=== PATIENT | female | born 1960 | race Caucasian/White ===

== ENCOUNTER 2020-12-23 08:45 | Emergency (ER) | payer OTHER, SELFPAY ==
[2020-12-23] VITALS (46 sets, daily range): BP systolic 96–156; BP diastolic 55–85; PULSE 65–105; RESP 8–27; TEMP 36.6; O2SAT 2–100; BMI 33.0
--- NOTE | 2020-12-23 09:05 | DI.RAD.S_ITS ---
PROCEDURE: XR ANKLE LT 2V INDICATIONS: fall TECHNIQUE: Two views of the ankle were acquired. COMPARISON: None. FINDINGS: Bones: Posterior and laterally displaced tibiotalar fracture dislocation. Laterally displaced spiral fracture of the fibula at the level of the syndesmosis. Mildly displaced posterior malleolar fracture. The syndesmosis and ankle mortise are disrupted. Soft tissues: No foreign bodies. Achilles tendon appears normal. IMPRESSION: 1. Posterolaterally displaced trimalleolar fracture dislocation. Dictated by: Jennifer Penaloza M.D. on 12/23/2020 at 10:30 Approved by: Jennifer Penaloza M.D. on 12/23/2020 at 10:33
[2020-12-23] MEDS: HYDROMORPHONE 1 MG INJ IV ×3 (09:29→11:50)
[2020-12-23] MEDS: SODIUM CHLORIDE 0.9% 1,000 ML 250 ML IV (09:51)
[2020-12-23 09:53] LABS: COVID19 -Nasal RAPID Negative (Negative)
--- NOTE | 2020-12-23 10:06 | ED.LOWEXIN ---
HPI - Extremity Injury (Lower) General Chief Complaint: Extremity Injury, Lower Stated Complaint: Fall Time Seen by Provider: 12/23/20 09:24 Source: patient, family and EMS Mode of arrival: EMS Limitations: no limitations History of Present Illness HPI Narrative: Patient is a 60-year-old female presents with left ankle pain. She said that she was outside moving the sprinkler in her yd but it is on the slope when she tripped and fell. No other injury. She denies numbness or tingling. She is not on any antiplatelet or anticoagulation medication Related Data Previous Rx's Medication Instructions Recorded hydrocodone 5 mg-acetaminophen 325 1 tab PO Q6H PRN #10 tab 12/23/20 mg tablet hydrocodone 5 mg-acetaminophen 325 1 tab PO Q6H PRN #20 tab 12/23/20 mg tablet ondansetron 4 mg disintegrating 4 mg PO Q8H PRN #10 tab 12/23/20 tablet Allergies Allergy/AdvReac Type Severity Reaction Status Date / Time No Known Drug Allergies Allergy Verified 12/23/20 09:29 Review of Systems Review of Systems Narrative: GENERAL: Denies chills,fever HEENT: Denies throat pain RESPIRATORY: Denies dyspnea, cough, wheezing CARDIOVASCULAR: Denies chest pain, palpitations GASTROINTESTINAL: Denies nausea, vomiting MUSCULOSKELETAL: See HPI SKIN: No rash, no laceration, no pruritus NEUROLOGIC: Denies weakness, dizziness, headache, numbness 8 point review of systems is negative except for those stated above and HPI Patient History Social History Smoking Status: Never smoker Smoking Status: Never smoker alcohol intake frequency: 0-2 drinks per day Substance Use Type: does not use Exam Initial Vital Signs Initial Vital Signs: Vital Signs Pulse Rate 90 12/23/20 09:03 Pulse Oximetry 96 12/23/20 09:03 GENERAL: Well-appearing, well-nourished and in no acute distress. HEENT: Head atraumatic,EOMI, pupils reactive, face symmetric, moist mucous membranes CARDIOVASCULAR: Regular rate and rhythm without murmurs, rubs or gallops. RESPIRATORY: Breath sounds equal bilaterally, no wheezes rales or rhonchi. ABDOMEN: Soft, nontender. Normoactive bowel sounds all 4 quadrants. No guarding or rebound. EXTREMITIES: Normal range of motion, no clubbing or edema. Neurovascularly intact. Left lower extremity in splint distal pedal pulse intact able to move toes. No knee pain or abnormality no pelvis or hip pain. NEUROLOGICAL: Alert and oriented x4 SKIN: Warm, dry, no laceration, no petechiae, no rashes or lesions. Procedures Orthopedic Fracture Reduction Fracture #1: Side: left Fracture Reduction Location: tibia and fibula Analgesia: procedural sedation Technique: direct manipulation Post Reduction X-rays Demonstrate: other (Persistent dislocation) Post-reduction neuro exam: intact Post-reduction vascular exam: intact Splint Applied: Yes Orthopedic Splinting/Casting Injury #1: Side: left Lower Extremity Injury Location: ankle Lower Extremity Immobilizer: posterior splint and stirrup splint Other Orthopedic Equipment: crutches Post splinting neuro exam: intact Post splinting vascular exam: intact Placed by: Provider Procedural Sedation Consent signed: Yes Time out performed: Yes Indication: fracture/dislocation reduction ASA Class: I Mallampati Airway Classification: Class I Preparation: information technology program manager applied, pulse oximeter, capnometry used, supplemental O2 applied and suction/airway equipment at bedside IV Propofol dose (mg): 100 ED Sedation Level: Moderate (Concious) Complications: hypoxia Interventions: Airway repositioned and Assist by BVM Additional Comments: Procedure: Left ankle fracture reduction Indication(s): Ankle fracture reduction Allergies: NKDA ASA Classification: E E. Emergent conditions P1:Normal healthy patient P2: Mild systemic disease P3: Severe systemic disease P4: Severe systemic disease that is a constant threat to life P5: Moribund patient who is not expected to survive w/o operation Physical Exam: Airway: Clear intact Mallampati Classification: 1 1. Soft Palate, anterior/posterior tonsillar pillars and uvula visible 2. Tonsillar pillars and uvula hidden by base of tongue 3. Only soft palate visible 4. Soft palate not visible Respiratory: Clear bilaterally Cardiovascular: Regular Neurological: A&O x4 Preparation: Plan was explained to the patient, including risks and benefits. Patient is competent to make decisions regarding this elective procedure. Consent signed. kitchen steward/stewardess in place during procedure Oximetry in place during procedure. Capnometry in place during procedure. IV access present and patent. Suction available at bedside if needed. Sedation medication used: Propofol 100 mg Complications: Required BVM Reversal: None Discharge Criteria: Procedure completed. Patient tolerated the procedure well. Vital signs to baseline. LOC returned to baseline. Able to ambulated unassisted or with minimal assistance. Discharge Instructions: Instructions provided to responsible adult. Verbalized understanding. Patient to be escorted home by responsible adult. Course Orders Ordered: ED Orders 12/23/20 11:49 XR ankle LT 2V Stat 12/23/20 13:11 XR ankle LT 2V Stat Discontinued Medications Hydromorphone HCl (Hydromorphone 1 Mg Inj) 1 mg IV NOW ONE Stop: 12/23/20 09:25 Last Admin: 12/23/20 09:29 Dose: 1 mg Documented by: SHERRILL Hydromorphone HCl (Hydromorphone 1 Mg Inj) 1 mg IV NOW ONE Stop: 12/23/20 09:49 Last Admin: 12/23/20 09:51 Dose: 1 mg Documented by: HUI Hydromorphone HCl (Hydromorphone 1 Mg Inj) 1 mg IV NOW ONE Stop: 12/23/20 11:50 Last Admin: 12/23/20 11:50 Dose: 1 mg Documented by: ALEXSANDRA Sodium Chloride (Normal Saline 0.9%) 1,000 mls @ 250 mls/hr IV BOLUS ONE Stop: 12/23/20 13:47 Last Admin: 12/23/20 09:51 Dose: 250 mls/hr Documented by: HUI Lorazepam (Lorazepam 2 Mg/Ml Inj) 0.5 mg IV NOW ONE Stop: 12/23/20 12:28 Last Admin: 12/23/20 12:45 Dose: 0.5 mg Documented by: ALEXSANDRA Ondansetron HCl (Ondansetron 4 Mg/2 Ml Inj) 4 mg IV NOW ONE Stop: 12/23/20 10:34 Last Admin: 12/23/20 10:36 Dose: 4 mg Documented by: HUI Ondansetron HCl (Ondansetron 4 Mg Odt) 4 mg SL NOW ONE Stop: 12/23/20 14:18 Last Admin: 12/23/20 14:20 Dose: 4 mg Documented by: ALEXSANDRA Propofol (Propofol 200 Mg/20 Ml Vial) 100 mg IV NOW ONE Stop: 12/23/20 11:09 Last Admin: 12/23/20 11:41 Dose: 100 mg Documented by: ALEXSANDRA Propofol (Propofol 200 Mg/20 Ml Vial) 100 mg IV NOW ONE Stop: 12/23/20 12:28 Last Admin: 12/23/20 12:56 Dose: 100 mg Documented by: ALEXSANDRA Vital Signs Vital signs: Vital Signs - 8 hr 12/23/20 11:10 12/23/20 11:15 12/23/20 11:20 Pulse Rate 80 96 H 78 Respiratory Rate Blood Pressure Pulse Oximetry 96 97 92 12/23/20 11:25 12/23/20 11:30 12/23/20 11:33 Pulse Rate 77 93 H Respiratory Rate Blood Pressure 124/74 119/72 Pulse Oximetry 97 97 12/23/20 11:35 12/23/20 11:40 12/23/20 11:45 Pulse Rate 105 H 91 H 82 Respiratory Rate 21 8 L Blood Pressure 115/66 116/69 96/55 L Pulse Oximetry 97 96 99 12/23/20 11:50 12/23/20 11:55 12/23/20 12:00 Pulse Rate 86 84 75 Respiratory Rate 16 13 9 L Blood Pressure 109/63 112/72 126/62 Pulse Oximetry 91 96 94 12/23/20 12:05 12/23/20 12:10 12/23/20 12:15 Pulse Rate 82 84 89 Respiratory Rate 13 17 19 Blood Pressure 117/74 123/71 Pulse Oximetry 97 96 97 12/23/20 12:20 12/23/20 12:25 12/23/20 12:30 Pulse Rate 76 87 79 Respiratory Rate 16 14 14 Blood Pressure 130/77 Pulse Oximetry 97 99 98 12/23/20 12:35 12/23/20 12:40 12/23/20 12:45 Pulse Rate 72 80 77 Respiratory Rate 12 17 14 Blood Pressure 129/71 123/81 Pulse Oximetry 96 99 99 12/23/20 12:50 12/23/20 12:55 12/23/20 13:00 Pulse Rate 65 81 75 Respiratory Rate 14 17 22 Blood Pressure 118/71 124/68 99/59 L Pulse Oximetry 100 100 100 12/23/20 13:05 12/23/20 13:10 12/23/20 13:15 Pulse Rate 81 88 89 Respiratory Rate 23 15 15 Blood Pressure 111/69 107/68 117/82 Pulse Oximetry 100 98 98 12/23/20 13:19 12/23/20 13:20 12/23/20 13:25 Pulse Rate 81 70 79 Respiratory Rate 15 10 L 17 Blood Pressure 127/70 125/80 Pulse Oximetry 98 99 12/23/20 13:30 12/23/20 13:31 12/23/20 13:35 Pulse Rate 89 70 77 Respiratory Rate 19 10 L 10 L Blood Pressure 141/60 H Pulse Oximetry 96 98 92 12/23/20 13:40 12/23/20 13:45 12/23/20 13:50 Pulse Rate 84 74 81 Respiratory Rate 20 14 27 H Blood Pressure Pulse Oximetry 97 99 99 12/23/20 13:55 12/23/20 14:00 Pulse Rate 85 83 Respiratory Rate 17 25 H Blood Pressure 133/81 Pulse Oximetry 100 99 MDM - Extremity Injury (Lower) Lab Data Labs: Lab Results 12/23/20 Range/Units 09:37 SARS-CoV-2 (PCR) Negative (Negative) Point of Care Testing Test Results Not applicable Imaging Data Extremity x-ray #1: Radiologist's Impression: PROCEDURE: XR ANKLE LT 2V INDICATIONS: fall TECHNIQUE: Two views of the ankle were acquired. COMPARISON: None. FINDINGS: Bones: Posterior and laterally displaced tibiotalar fracture dislocation. Laterally displaced spiral fracture of the fibula at the level of the syndesmosis. Mildly displaced posterior malleolar fracture. The syndesmosis and ankle mortise are disrupted. Soft tissues: No foreign bodies. Achilles tendon appears normal. IMPRESSION: 1. Posterolaterally displaced trimalleolar fracture dislocation. Dictated by: Jennifer Penaloza M.D. on 12/23/2020 at 10:30 Extremity x-ray #2: Radiologist's Impression: PROCEDURE: XR ANKLE LT 2V INDICATIONS: reduction TECHNIQUE: 2 views of the ankle were acquired. COMPARISON: [facility], XR ANKLE LT 2V, 12/23/2020, 9:42. FINDINGS: Bones: No new fractures or dislocations. Ankle mortise is normally aligned. No suspicious bony lesions. Soft tissues: No tibiotalar joint effusion. Achilles tendon appears normal. IMPRESSION: Reduction of fracture dislocations, gross anatomic alignment established, in splint. Orthopedic surgical intervention is anticipated. Dictated by: David Munoz M.D. on 12/23/2020 at 12:20 Extremity x-ray #3: Radiologist's Impression: PROCEDURE: XR ANKLE LT 2V INDICATIONS: reduction TECHNIQUE: Three views of the ankle were acquired. COMPARISON: [facility], CR, XR ANKLE LT 2V, 12/23/2020, 11:51. FINDINGS: Bones: Bahai of near anatomic alignment following a trimalleolar ankle fracture dislocation. Fractures seen are now minimally displaced. Soft tissues: Medial soft tissue swelling. IMPRESSION: Improved alignment post reduction with now minimally displaced trimalleolar fracture. Dictated by: Jennifer Penaloza M.D. on 12/23/2020 at 13:54 Approved by: Jennifer Penaloza M.D. on 12/23/2020 at 13: MDM Narrative Medical decision making narrative: Initial reduction was unsuccessful. 1230- Dr. Carvajal orthopedic updated on patient's symptoms test results, will be in to emergency department for reduction He performed a 2nd reduction although I was there to assist. 2nd reduction was successful. Plaster splint was placed by Dr. Carvajal. Patient was feeling nauseated likely from pain and medication. Zofran did help. Discharge Plan Departure Patient Disposition: Home Clinical Impression: Fracture of left ankle Qualifiers: Encounter type: initial encounter Fracture type: closed Qualified Code(s): S82.892A - Other fracture of left lower leg, initial encounter for closed fracture Closed dislocation of left ankle Qualifiers: Encounter type: initial encounter Qualified Code(s): S93.05XA - Dislocation of left ankle joint, initial encounter Instructions: DI for Ankle Fracture Activity Restrictions/Additional Instructions: *You have been diagnosed with left ankle fracture dislocation *What to do: At this time keep foot in cast. You will follow-up with orthopedics next week. Use crutches. No weight-bearing. Elevate, ice *Continue to take medications as directed [place] 1-2 tablets every 6 hours if needed for severe pain *Follow up with your primary care provider in 2-3 days Follow-up with Dr. Carvajal *Return to ER if you should have increasing pain numbness tingling or any new, worsening or concerning symptoms Prescriptions: New hydrocodone-acetaminophen 5-325 mg tablet 1 tab PO Q6H PRN (Reason: pain) Qty: 10 RF: 0 hydrocodone-acetaminophen 5-325 mg tablet 1 tab PO Q6H PRN (Reason: pain) Qty: 20 RF: 0 ondansetron 4 mg tablet,disintegrating 4 mg PO Q8H PRN (Reason: nausea and vomiting) Qty: 10 RF: 0 Referrals: Elpidio Carvajal MD [Physician] - Franca Russ MD [Primary Care Provider] -
[2020-12-23] MEDS: ONDANSETRON 4 MG/2 ML INJ IV (10:36)
[2020-12-23] MEDS: ONDANSETRON 4 MG/2 ML INJ (11:35)
[2020-12-23] MEDS: propofoL 200 MG/20 ML VIAL 100 MG IV ×2 (11:41→12:56)
--- NOTE | 2020-12-23 11:49 | DI.RAD.S_ITS ---
PROCEDURE: XR ANKLE LT 2V INDICATIONS: reduction TECHNIQUE: 2 views of the ankle were acquired. COMPARISON: [facility], CR, XR ANKLE LT 2V, 12/23/2020, 9:42. FINDINGS: Bones: No new fractures or dislocations. Ankle mortise is normally aligned. No suspicious bony lesions. Soft tissues: No tibiotalar joint effusion. Achilles tendon appears normal. IMPRESSION: Reduction of fracture dislocations, gross anatomic alignment established, in splint. Orthopedic surgical intervention is anticipated. Dictated by: David Munoz M.D. on 12/23/2020 at 12:20 Approved by: David Munoz M.D. on 12/23/2020 at 12:20
[2020-12-23] MEDS: LORazepam 2 MG/ML INJ 0.5 MG IV (12:45)
--- NOTE | 2020-12-23 13:11 | DI.RAD.S_ITS ---
PROCEDURE: XR ANKLE LT 2V INDICATIONS: reduction TECHNIQUE: Three views of the ankle were acquired. COMPARISON: [facility], , XR ANKLE LT 2V, 12/23/2020, 11:51. FINDINGS: Bones: Moravian of near anatomic alignment following a trimalleolar ankle fracture dislocation. Fractures seen are now minimally displaced. Soft tissues: Medial soft tissue swelling. IMPRESSION: Improved alignment post reduction with now minimally displaced trimalleolar fracture. Dictated by: Jennifer Penaloza M.D. on 12/23/2020 at 13:54 Approved by: Jennifer Penaloza M.D. on 12/23/2020 at 13:58
--- NOTE | 2020-12-23 13:14 | PM.CN ---
History of Present Illness Consult details Date Patient Seen: 12/23/20 Time Patient Seen: 13:14 Chief complaint: Fall Requesting provider: Arabella Jacome Narrative: Patient is a 60-year-old female presents with left ankle pain. She said that she was outside moving the sprinkler in her yd but it is on the slope when she tripped and fell. No other injury. She denies numbness or tingling. She is not on any antiplatelet or anticoagulation medication Meds Home Medications and Allergies Allergies Allergy/AdvReac Type Severity Reaction Status Date / Time No Known Drug Allergies Allergy Verified 12/23/20 09:29 Review of Systems Review of Systems ROS: Yes All systems reviewed with the patient and are negative except as otherwise documented Exam Vital Signs (past 8 hours): - 12/23/20 09:03 12/23/20 09:04 12/23/20 09:15 Temperature 97.8 F Pulse Rate 90 90 89 Respiratory Rate 20 Blood Pressure 126/85 126/85 Pulse Oximetry 96 98 99 12/23/20 09:30 12/23/20 10:00 12/23/20 10:30 Temperature Pulse Rate 69 95 H 103 H Respiratory Rate 16 16 Blood Pressure 156/78 H 129/70 114/62 Pulse Oximetry 100 97 96 12/23/20 11:00 12/23/20 11:05 12/23/20 11:10 Temperature Pulse Rate 78 81 80 Respiratory Rate Blood Pressure 122/62 Pulse Oximetry 93 97 96 12/23/20 11:15 12/23/20 11:20 12/23/20 11:25 Temperature Pulse Rate 96 H 78 77 Respiratory Rate Blood Pressure Pulse Oximetry 97 92 97 12/23/20 11:30 12/23/20 11:33 12/23/20 11:35 Temperature Pulse Rate 93 H 105 H Respiratory Rate Blood Pressure 124/74 119/72 115/66 Pulse Oximetry 97 97 12/23/20 11:40 12/23/20 11:45 12/23/20 11:50 Temperature Pulse Rate 91 H 82 86 Respiratory Rate 21 8 L 16 Blood Pressure 116/69 96/55 L 109/63 Pulse Oximetry 96 99 91 12/23/20 11:55 12/23/20 12:00 12/23/20 12:05 Temperature Pulse Rate 84 75 82 Respiratory Rate 13 9 L 13 Blood Pressure 112/72 126/62 117/74 Pulse Oximetry 96 94 97 12/23/20 12:10 12/23/20 12:15 12/23/20 12:20 Temperature Pulse Rate 84 89 76 Respiratory Rate 17 19 16 Blood Pressure 123/71 Pulse Oximetry 96 97 97 12/23/20 12:25 12/23/20 12:30 12/23/20 12:35 Temperature Pulse Rate 87 79 72 Respiratory Rate 14 14 12 Blood Pressure 130/77 129/71 Pulse Oximetry 99 98 96 12/23/20 12:40 12/23/20 12:45 12/23/20 12:55 Temperature Pulse Rate 80 77 Respiratory Rate 17 14 Blood Pressure 123/81 Pulse Oximetry 99 99 2 L Oxygen Delivery Method Nasal Cannula Oxygen Flow Rate 2 Narrative Exam Narrative: NV intact in the LLE, eccyhmosis about the ankle. No skin tenting or skin breaks. Objective Imaging ankle x-ray: My impression: Trimalleolar ankle fracture s/p closed reduction with some impriovement of alignment. The Talus remains dislocated out the back. Moderate posterior mal fragment. ankle x-ray s/p reduction: My impression: Improved alignment of ankle fracture. The talus is well centered under the tibial plafond. Labs Labs: Laboratory Results - last 24 hr 12/23/20 09:37 SARS-CoV-2 (PCR) Negative Assessment & Plan Assessment & Plan narrative: Patient is a 60 yo F with a trimalleolar ankle fracture dislocation after a GLF today. The ER attempted a closed reduction with some imrpovement of alignment, however the ankle remained dislocated. Patient underwent subbsequent closed reduction by Dr. Carvajal with improvement of alignment and reduction of the dislocation. She was placed into a short leg splint. Instructed to elevate and ICE frequently over the weekend. Call clinic on saturday to set follow up appointment. - NWB LLE - elevate and ICE - Keep splint c/d/i - call clinic Saturday for appointment Time Spent With Patient Time with patient: Greater than 35 minutes
--- NOTE | 2020-12-23 13:20 | RT ---
Called to bedside repeat sedation, bag mask unit with suction on and functional 100% fio2. Etco2 on at 35. MD at bedside after sedation pt became apnic and bagged approx 5 min with Jaw thrust. Pt arousable and on 2lpm nc with good sao2 at 96%. Pt turned down to room air with sao2 @96%, Released by Rn and no distress noted. Pt awake and alert, all rales up.
[2020-12-23] MEDS: ONDANSETRON 4 MG ODT SL (14:20)
== END 2020-12-23 14:32 | disposition home or self-care (01) ==
PROVIDERS: Emergency Provider Emergency Medicine; PCP Internal Medicine
DX: S82.892A Other fracture of left lower leg, initial encounter for closed fracture (principal); S93.05XA Dislocation of left ankle joint, initial encounter; W01.0XXA Fall on same level from slipping, tripping and stumbling without subsequent striking against object, initial encounter; Z20.822 Contact with and (suspected) exposure to COVID-19
CPT/HCPCS: 27752; 73600; 87635; 96374; 96375; 96376; 99152; 99285; C9803; J1170; J2060; J2405; J2704

== ENCOUNTER → 2020-12-27 15:21 | Outpatient (CLI) | payer OTHER, SELFPAY ==
--- NOTE | 2020-12-27 15:24 | DI.CT.S_ITS ---
PROCEDURE: CT LE LT W CON INDICATIONS: Displaced trimalleolar fracture of left lower leg TECHNIQUE: Noncontrast 1-1.5 mm axial sections acquired from above the tibiotalar joint to the bottom of the calcaneus, with coronal and sagittal reformats. COMPARISON: [facility], CR, XR ANKLE LT 2V, 12/23/2020, 13:12. FINDINGS: Image quality: Diagnostic. Bones: There is a comminuted fracture of the distal tibia involving the medial and posterior malleoli with extension to the tibiotalar joint. A comminuted fracture of the distal fibular shaft is also demonstrated extending to the tibial fibular syndesmosis. There is associated syndesmotic widening. There is also widening of the ankle mortise medially and laterally. Remaining visualized osseous structures appear intact. Soft tissues: There is extensive periarticular soft tissue swelling and subcutaneous edema around the ankle. The visualized flexor, extensor, peroneal, and Achilles tendons appear intact. IMPRESSION: 1. Comminuted fractures of the distal tibia and fibula as described with associated disruption of the ankle mortise and widening of the distal syndesmosis. Dictated by: Angus Naidu M.D. on 12/27/2020 at 17:40 Approved by: Angus Naidu M.D. on 12/27/2020 at 17:43
== END ==
PROVIDERS: PCP Internal Medicine; Referring Provider Orthopaedic Surgery Foot and Ankle Surgery; Visit Provider Orthopaedic Surgery Foot and Ankle Surgery
DX: S82.852A Displaced trimalleolar fracture of left lower leg, initial encounter for closed fracture (principal); S82.832A Other fracture of upper and lower end of left fibula, initial encounter for closed fracture; Z20.822 Contact with and (suspected) exposure to COVID-19; X58.XXXA Exposure to other specified factors, initial encounter
CPT/HCPCS: 73700; 87635

== ENCOUNTER → 2020-12-27 16:25 | Outpatient (CLI) | payer OTHER, SELFPAY ==
[2020-12-27 16:51] LABS: COVID19 -Nasal RAPID Negative (Negative)
== END ==
PROVIDERS: PCP Internal Medicine; Visit Provider Physician Assistant
DX: Z20.822 Contact with and (suspected) exposure to COVID-19 (principal)
CPT/HCPCS: 87635

== ENCOUNTER 2020-12-30 08:22 | Day surgery (SDC) | payer OTHER, SELFPAY ==
[2020-12-30] VITALS (8 sets, daily range): BP systolic 125–138; BP diastolic 63–75; PULSE 87–112; RESP 10–16; TEMP 36.1–37.6; O2SAT 92–99; BMI 35.7
--- NOTE | 2020-12-30 | DI.RAD.S_ITS ---
PROCEDURE: XR ANKLE LT MIN 3V INDICATIONS: ORIF LEFT ANKLE TECHNIQUE: 9 operative views of the ankle were acquired. COMPARISON: [facility], CR, XR ANKLE LT 2V, 12/23/2020, 13:12. FINDINGS: 9 intraoperative C-arm images utilized during performance of trimalleolar ORIF. IMPRESSION: Intraoperative imaging utilized during performance of trimalleolar ORIF with no radiographic evidence of complications. Dictated by: Joe Avila M.D. on 12/30/2020 at 16:08 Approved by: Joe Avila M.D. on 12/30/2020 at 16:15
[2020-12-30] MEDS: LACTATED RINGERS 1,000 ML 42 ML IV ×2 (09:37→13:12)
[2020-12-30] MEDS: GABAPENTIN 300 MG CAPSULE PO (10:41)
[2020-12-30] MEDS: ACETAMINOPHEN 325 MG TABLET 975 MG PO (10:41)
[2020-12-30] MEDS: CELECOXIB 200 MG CAPSULE 400 MG PO (10:41)
--- NOTE | 2020-12-30 11:45 | PM.PREOP ---
Pre-operative Note COVID-19 COVID-19 status: Negative Interval Note History & Physical reviewed/Exam performed by Physician: Yes Changes to H&P: No
--- NOTE | 2020-12-30 11:49 | SUR.PREOP ---
Block start time [1142] . Monitoring initiated and maintained throughout procedure. Medications given by Dr. Mclaughlin. Patient remained stable throughout procedure, no adverse reactions noted. Block end time [1147]. Time out completed before procedure, pt take to OR by SRIKANTH Hanley
[2020-12-30] MEDS: CEFAZOLIN 1 GM VIAL 2 GM IV (12:05)
--- NOTE | 2020-12-30 12:08 | PM.PROC.1 ---
Procedures Date/Time Date of procedure: 12/30/20 Time of procedure: 11:44 Nerve Block Time out performed: Yes Local anesthetic used: bupivacaine 0.5% Amount of anesthesia used (mL): 15 Nerve blocks: peroneal (popliteal) Procedure successful: Yes Patient tolerated procedure: well and no complications Complications: none Additional comments: Popliteal nerve block performed for post-op pain control at surgeon request. Patient was positioned with IV, O2, monitors and rescue meds available. Prepped and timeout performed. Target identified with continuous ultrasound guidance. 15mL of bupivicaine 0.5% was injected perineurally with intermittent aspiration and injection. No blood, no paresthesias, no acute complications.
--- NOTE | 2020-12-30 12:10 | PM.PROC.1 ---
Procedures Date/Time Date of procedure: 12/30/20 Time of procedure: 11:47 Nerve Block Time out performed: Yes Local anesthetic used: bupivacaine 0.5% Amount of anesthesia used (mL): 15 Nerve blocks: femoral (adductor canal) Procedure successful: Yes Patient tolerated procedure: well and no complications Complications: none Additional comments: Adductor canal nerve block performed for post-op pain control at surgeon request. Patient was positioned with IV, O2, monitors and rescue meds available. Prepped and timeout performed. Target identified with continuous ultrasound guidance. 15 mL of bupivicaine 0.5% was injected perineurally with intermittent aspiration and injection. No blood, no paresthesias, no acute complications.
[2020-12-30] MEDS: BUPIVACAINE 0.25% W/ EPI 30 ML VIAL INJ (13:13)
--- NOTE | 2020-12-30 15:13 | P.OP_ITS ---
Operative Date/Time/Diagnoses Date of procedure: 12/30/20 Time of procedure: 12:15 Pre-op diagnosis: Left trimalleolar ankle fracture dislocation S82.852A Post-op diagnosis: same Procedure & Clinicians Procedure: 1. Open reduction and internal fixation trimalleolar ankle fracture including fixation of posterior malleolus cpt [id number] Same procedure as scheduled: Yes Indications: Patient is a 60-year-old female that sustained a displaced trimalleolar ankle fracture dislocation when she slipped in her yd moving a sprinkler. She was seen in the [facility] Emergency Room reduction was performed. She had unstable fracture pattern indicated for surgery. Risks and benefits were discussed with the patient. The risks and benefits of the pr ocedure have been discussed with the patient even opportunity to ask questions. The risks of surgery include but are not limited to infection, malunion, nonunion, persistence of pain, damage to nerves and blood vessels, posttraumatic arthritis, DVT, PE, cardiopulmonary complications and . The patient expressed a thorough understanding of the risks and benefits of surgery and has elected to proceed. Consent was signed in the office. Surgeon: Carol Pedraza Click Yes if Unassisted: Yes Anesthesia Type: General, Peripheral nerve block and Local (0.25% Marcaine with epinephrine 20 cc) Operative Notes Findings: Posterior malleolus fracture with interposed articular fragment this was removed in the posterior malleolus was reduced and fixed with a screw and washer. Lateral malleolus was extremely comminuted fibular shaft fracture multiple fragments. This was fixed with a 12 hole 1/3 tubular bridge plate to avoid stripping the comminuted fragments additional 0 Vicryl suture cerclage was performed. Medial malleolus was fixed with 2 x 44 mm 4.0 cannulated screws The syndesmosis was stressed under fluoroscopic guidance with external rotation and separately with the hook test and was stable. Closure Type: primary Specimen(s): none sent Prosthetic devices, grafts, tissues, transplants, or devices: Lateral malleolus: Arthrex 12 hole 1/3 tubular plate. Locking 3.5 screws distally. Cortical 3.5 screws proximally Medial malleolus: Arthrex 2x 4.0 44mm cannulated screws Posterior malleolus: Arthrex 4.0mm cannulated screw and washer Estimated Blood Loss (mL): 20 Blood products transfused: none Tourniquet time (min): 119 Procedure in detail: Procedure in detail: In the preoperative holding area, the appropriate limb and sites were marked, consent was again reviewed with the patient and all questions answered. The patient was brought to the operating room, placed on the operating table and given anesthetic. Following successful levels of anesthesia, the patient was appropriately padded, position secured to the table. A lateral position on a beanbag was used for this case. An SCD was placed on the contralateral leg. All bony prominences were well padded. A well-padded thigh tourniquet was placed. The surgical leg was then prepped and draped in the usual sterile fashion. A formal time-out procedure was completed confirming the patient, site and side of surgery and administration of appropriate preoperative antibiotics. All were in agreement. An Esmarch bandage was utilized to exsanguinate the limb and the tourniquet was raised on the thigh to 250 mmHg. Posterior lateral incision was made midway between the Achilles and the fibula. Dissection was carried through the skin and subcutaneous tissue and fascia. The fascia was opened the sural nerve was visualized and protected throughout this case.. The peroneal is a were exposed and retracted laterally. The FHL then retracted medially across the a tibia to expose the posterior malleolus. Posterior malleolus fracture was then exposed. The fracture was exposed and cleaned of debris. There is a sizable articular fragment blocking reduction of the posterior malleolus. This was removed with pituitary. Fracture was reduced, restoring length rotation and anatomic alignment. This was stabilized with 4.0 cannulated screw and washer to act as a 1 hole plate. Next attention was turned to the posterior fibula. The peroneal tendons were retracted medially exposing the posterior fibula and a highly comminuted fibular shaft fracture. Due to the comminuted nature of the fracture a bridge plate was selected. The clamps were used to pull little extra length on the fracture and then a 12 hole 1/3 tubular locking plate was placed and secured in standard fashion. Cortical screws were placed proximally and locking screws distally to reduce prominence and to obtain fixation in distal cancellous bone. Lobster claw clamps were used around the comminuted fracture sections to reduce the fragments and then a 0 Vicryl cerclage suture was used followed by final screw placement. Appropriate implant positioning was confirmed on intraoperative fluoro. Leg was then externally rotated and attention was turned to the medial malleolu s. Medial malleolus fixation: Attention was then turned to the medial side of the joint. A standard medial approach to the medial malleolus as it. The periosteum was reflected at the fracture site and this was cleaned and reduced with a pointed reduction clamp. The medial aspect of the joint was visualized through the fracture site and was noted intact. Two parallel K-wires were then placed and alignment checked on x-ray to confirm adequate position. The wires were then sequentially overdrilled and (2) 4.0mm cannulated screws were placed. The reduction was stable. Ankle was stressed under fluoroscopic imaging an external rotation and fibular manipulation using the bone clamp/hook. The syndesmosis was felt to be stable no widening was noted. Stability was confirmed under fluoro. The wounds were irrigated. We were quite satisfied with result clinically and radiographically. The tourniquet was released, and hemostasis achieved. The deep tissue was closed with 2 O Vicryl. Subcutaneous tissue was closed with 4 0 Monocryl in the skin with 3 O nylon. A sterile bulky dressing and knee splint were applied. All counts were correct. The patient was then awoken and transported to recovery room in good condition. There no known immediate complications from this procedure. Complications: none Post-operative Condition: stable Disposition: PACU Plan for aftercare: Nonweightbearing left lower extremity. Elevate above the heart much as possible next 2 weeks. Take pain medication as prescribed. Start aspirin 325 mg daily on postop day 1 for DVT prophylaxis. Follow-up in 2 weeks. Will remain nonweightbearing for 6 weeks and start progressive weight-bearing. If incisions are well healed 2 weeks will have sutures removed start range of motion in a walking boot
--- NOTE | 2020-12-30 15:40 | SUR.PHASEI ---
Dr Mclaughlin notified of heart rate at 110 upon discharge. States okay to go ahead with discharge.
== END 2020-12-30 16:00 | disposition home or self-care (01) ==
PROVIDERS: PCP Internal Medicine; Referring Provider Orthopaedic Surgery Foot and Ankle Surgery; Visit Provider Orthopaedic Surgery Foot and Ankle Surgery
PROC: (CPT 27823; principal; 2020-12-30 10:15)
DX: S82.852A Displaced trimalleolar fracture of left lower leg, initial encounter for closed fracture (principal); W01.0XXA Fall on same level from slipping, tripping and stumbling without subsequent striking against object, initial encounter; Y93.H2 Activity, gardening and landscaping; Y92.007 Garden or yard of unspecified non-institutional (private) residence as the place of occurrence of the external cause
CPT/HCPCS: 27823; 64450; 73610; 76000; J0690; J1100; J2250; J2405; J2704; J3010

== ENCOUNTER → 2021-03-20 17:18 | Outpatient (CLI) | payer OTHER, SELFPAY ==
--- NOTE | 2021-03-20 | DI.MG.S_ITS ---
BILATERAL DIGITAL SCREENING MAMMOGRAM 3D/2D WITH CAD: 03/20/2021 CLINICAL: Routine screening. Comparison is made to exams dated: 08/12/2017 mammogram - outside, 08/01/2015 mammogram, and 04/07/2013 mammogram. There are scattered fibroglandular elements in both breasts. Current study was also evaluated with a Computer Aided Detection (CAD) system. No significant masses, calcifications, or other findings are seen in either breast. There has been no significant interval change. IMPRESSION: NEGATIVE There is no mammographic evidence of malignancy. A 1 year screening mammogram is recommended. This exam was interpreted at Station ID: [id number]. NOTE: For mammograms, a report in lay terms will be sent to the patient. Approximately 15% of breast malignancies will not be visualized mammographically. In the management of a palpable breast mass, a negative mammogram must not discourage biopsy of a clinically suspicious lesion. Electronically Signed By: Dion Sandoval M.D. at/anderson:03/21/2021 09:07:53 letter sent: Normal Exam ACR BI-RADS Category 1: Negative [id number]
== END ==
PROVIDERS: PCP Internal Medicine; Referring Provider Internal Medicine; Visit Provider Internal Medicine
DX: Z12.31 Encounter for screening mammogram for malignant neoplasm of breast (principal)
CPT/HCPCS: 77063; 77067

== ENCOUNTER 2021-03-31 13:23 | Day surgery (SDC) | payer OTHER, SELFPAY ==
[2021-03-30 12:12] VITALS: BMI 35.2
[2021-03-31] VITALS (10 sets, daily range): BP systolic 87–154; BP diastolic 35–78; PULSE 83–98; RESP 12–25; TEMP 36.6–37.1; O2SAT 93–100; BMI 35.2
[2021-03-31 14:07] LABS: COVID19 -Nasal RAPID Negative (Negative)
--- NOTE | 2021-03-31 14:34 | PM.PREOP ---
Pre-operative Note COVID-19 COVID-19 status: Negative Interval Note History & Physical reviewed/Exam performed by Physician: Yes Changes to H&P: No
--- NOTE | 2021-03-31 15:15 | SUR.OPER ---
Lateral on a padilla bag, head on pillow, gel axillary roll in place, bottom leg bent with gel pad under knee to foot, upper leg straight and supported with pillows. Upper arm supported by pillows and secured over bottom arm to padded arm board. Safety belt at hip, tape over blanket lower legs.
[2021-03-31] MEDS: CEFAZOLIN 1 GM VIAL 2 GM IV (15:21)
[2021-03-31] MEDS: EPINEPHrine 1 MG/ML 0.15 MG INJ (15:29)
[2021-03-31] MEDS: BUPIVACAINE 0.25% (PF) VIAL 30 ML INJ (15:29)
--- NOTE | 2021-03-31 16:08 | P.OP_ITS ---
Operative Date/Time/Diagnoses Date of procedure: 03/31/21 Time of procedure: 16:09 Pre-op diagnosis: Wound infection T14.8 BMI 35 a 39 Z68.35 Closed trimalleolar ankle fracture, left S82.892 Post-op diagnosis: same Procedure & Clinicians Procedure: Read muscle fashion initial 20 sq cm or less, left CPT code 10008 Same procedure as scheduled: Yes Indications: Patient is a 60-year-old female status post ORIF trimalleolar ankle fracture. She had slow wound healing areas that appeared to be suture abscesses. And then some dehiscence more distally in her wound, this started to heal but became recurrently inflamed. There was no cellulitis but continued weeping was a concern for superficial versus deep infection. The risks and benefits of the procedure have been discussed with the patient even opportunity to ask questions. The risks of surgery include but are not limited to infection, need for additional procedures. Malunion, nonunion, persistence of pain, damage to nerves and blood vessels, posttraumatic arthritis, DVT, PE, cardiopulmonary complications and . The patient expressed a thorough understanding of the risks and benefits of surgery and has elected to proceed. Consent was signed in the office. Surgeon: Carol Pedraza Click Yes if Unassisted: Yes Anesthesia Type: General and Local Operative Notes Findings: Superficial inflamed tissue in the skin and subcutaneous tissue along the length of the incision. Fibrinous exudate around the areas of suture abscess. No purulence collections were noted. No deep sinus or tracking. Wound was debrided down to the deep fascia which was not violated and the plate was not exposed. Closure Type: primary Specimen(s): other (Tissue and cultures for microbiology) Estimated Blood Loss (mL): 10 Blood products transfused: none Tourniquet time (min): 16 Procedure in detail: Patient was seen in the preoperative area the site of surgery marked informed consent confirmed. She was brought back to the operating room by the anesthesia team. General anesthetic was administered. The patient was positioned onto the beanbag. She was then positioned to the lateral decubitus position with the left side up. All bony prominences well padded. An axillary roll was placed. A well-padded thigh tourniquet was placed. SCD was 1 on the contralateral leg. The left leg was prepped and draped in the standard sterile fashion. A formal time-out was completed confirming the patient's side and site of surgery presence of informed consent. Antibiotics were held until cultures were taken then administered. Attention was turned to the left lower extremity this was elevated for gravity exsanguination and the tourniquet was elevated to 250 mmHg. Posterolateral incision was then inspected this was reopened the length of the incision and the wound edges were excised. Skin subcutaneous tissue and fascia were debrided. No gross purulence areas were demonstrated. The deep fascia was intact. Swabs and the tissue were sent then antibiotics were given There were no sinuses or tracking down to the hardware. Wound was then irrigated with 3 L of saline using the cysto tubing. Gloves were changed and a clean drape placed. Tourniquet was released and hemostasis was achieved. The wound was closed in layers with 2-0 PDS and 3-0 nylon suture. 20 cc of local anesthetic was infiltrated. Was placed with Telfa and gauze. Patient was woken from anest hesia and taken to recovery room in good condition. There no immediate complications from this procedure. Complications: none Post-operative Condition: stable Disposition: PACU Plan for aftercare: Weightbear as tolerated. Keep incision clean dry and int act. Follow-up in 2 [facility]. Take antibiotic as prescribed. May talar as needed depending on culture results.
[2021-03-31] MEDS: ONDANSETRON 4 MG/2 ML INJ IV (16:15)
[2021-03-31] MEDS: fentaNYL 100 MCG/2 ML INJ IV ×4 (16:16→16:44)
[2021-03-31] MEDS: HYDROMORPHONE 2 MG INJ IV ×2 (17:16→17:21)
--- NOTE | 2021-03-31 17:34 | PM.PROC.1 ---
Procedures Date/Time Date of procedure: 03/31/21 Time of procedure: 17:00 General Procedure description: Ultrasound guided popliteal sciatic nerve block for post op pain control after left ankle wound debridement by Dr. Pedraza. Performed in PACU after operation. Pain not controlled with IV pain medication. Risk and benefits of procedure discussed with patient. ASA monitoring applied to patient. No procedural sedation. Skin site was prepped with chlorhexidine and allowed to fully dry. Sterile gloves, mask, hat and probe cover were used to maintain sterility. 2% lidocaine and 30ga needle was used to make a small skin wheal at needle insertion site. Under ultrasound guidance, a 21ga 100mm Pajunk needle was directed near the division of the sciatic nerve into tibial and peroneal nerve in the popliteal fossa (lateral approach). Patient reported no parasthesias. After negative aspiration, 20 mL 0.5% ropivicaine and 10mg dexamethasone were injected around sciatic nerve. Patient tolerated procedure well.
== END 2021-03-31 18:23 | disposition home or self-care (01) ==
PROVIDERS: PCP Internal Medicine; Referring Provider Orthopaedic Surgery Foot and Ankle Surgery; Visit Provider Orthopaedic Surgery Foot and Ankle Surgery
PROC: (CPT 11043; principal; 2021-03-31 15:45)
DX: T81.41XA Infection following a procedure, superficial incisional surgical site, initial encounter (principal); Z98.890 Other specified postprocedural states
CPT/HCPCS: 11043; 87070; 87075; 87176; 87205; 87635; J0171; J0690; J1100; J1170; J1885; J2250; J2405; J2704; J3010